=== PATIENT | male | born 1960 | race Caucasian/White ===

== ENCOUNTER 2017-08-14 12:48 | Emergency (ER) | payer OTHER ==
[~2017-08-14] VITALS: Ht 175.3 cm; Wt 76.2 kg
[2017-08-14 12:56] VITALS: Ht 175.3 cm; Wt 76.2 kg
[2017-08-14 16:55] LABS: BASOPHIL % 0.7 % (0-2); PLATELET COUNT 223 x10^3mcL (130-400); RED CELL DISTRIBUTION WIDTH 13.3 % (11.5-14.5)
[2017-08-14 16:58] LABS: CARBON DIOXIDE 28.7 mmol/L (21-32); CHLORIDE SERUM 106 mmol/L (98-107); GFR1 > 60 mL/min; GLUCOSE SERUM 94 mg/dL (74-106); POTASSIUM SERUM 4.3 mmol/L (3.5-5.1); SODIUM SERUM 144 mmol/L (136-145)
[2017-08-14 17:02] LABS: ALBUMIN 3.9 g/dL (3.4-5.0); ALKALINE PHOSPHATASE 76 U/L (46-116); ALT/SGPT 19 U/L (16-63); AST/SGOT 15 U/L (15-37); BILIRUBIN TOTAL 0.79 mg/dL (0.20-1.00)
[2017-08-14 17:03] LABS: TOTAL PROTEIN, SERUM 8.6 g/dL (6.4-8.2)
[2017-08-14 18:46] VITALS: BP 113/41
== END 2017-08-14 18:46 | disposition home or self-care (01) ==
LOC: ED 12:48
PROVIDERS: Emergency Medicine
DX: R07.89 Other chest pain (principal); J11.1 Influenza due to unidentified influenza virus with other respiratory manifestations; B19.20 Unspecified viral hepatitis C without hepatic coma
CPT/HCPCS: 36415; 83880; J1885; Q0092

== ENCOUNTER 2020-01-20 09:43 | Emergency (ER) | payer OTHER ==
[~2020-01-20] VITALS: Ht 175.3 cm; Wt 68.5 kg
[2020-01-20 10:01] VITALS: Ht 175.3 cm; Wt 68.5 kg
[2020-01-20 12:24] VITALS: BP 120/73
== END 2020-01-20 12:24 | disposition home or self-care (01) ==
LOC: ED 09:43
DX: K13.0 Diseases of lips (principal); G89.29 Other chronic pain
CPT/HCPCS: J0696